=== PATIENT | female | born 1980 | race Caucasian/White ===

== ENCOUNTER 2020-03-16 01:45 | Outpatient (CLI) | payer MEDICAID, SELFPAY ==
[2020-03-16 08:40] LABS: Abs Immature Grans 0.05 10^3/uL (0.0-0.06); Absolute Basophil Count 0.02 10^3/uL (0.0-0.2); Absolute Eosinophil Count 0.16 10^3/uL (0.0-0.7); Absolute Lymphocyte Count 1.57 10^3/uL (1.2-3.4); Absolute Monocyte Count 0.37 10^3/uL (0.1-0.8); Basophils % 0.3; Eosinophils % 2.1; HCT 35.2 % (36.0-46.0); HGB 12.4 g/dL (11.2-15.7); Immature Grans % 0.7; MCH 31.3 pg (27.0-33.0); MCHC 35.2 % (32.0-36.0); MCV 88.9 fL (80-95); MPV 9.5 fL (8.0-11.0); Neutrophils % 70.9; Nucleated RBC 0 %; Platelet Count 246 10^3/uL (130-400); RBC 3.96 10^6/uL (3.93-5.22); RDW 12.6 % (11.7-14.6); RDW-SD 41.2 fL; WBC 7.47 10^3/uL (4.4-10.8)
[2020-03-16 09:18] LABS: Iron 217 ug/dL (50-170); Total Iron Binding Capacity 342 ug/dL (250-450); Transferrin Sat 63 % (15-50)
[2020-03-16 09:41] LABS: Vitamin D 25 Total 35.2 ng/ml (30-100)
[2020-03-16 10:47] LABS: ALT 26 U/L (14-59); AST 19 U/L (15-37); Albumin 4.1 g/dL (3.4-5.0); Alkaline Phosphatase 29 U/L (46-116); Anion Gap 7.8 mmol/L (3-11); BUN 10 mg/dL (7-18); Bilirubin, Total 0.6 mg/dL (0.2-1.0); CO2 27.2 mmol/L (21.0-32.0); CREATININE 0.77 mg/dL (0.55-1.02); Calcium 8.9 mg/dL (8.5-10.1); Chloride 104 mmol/L (98-107); Ferritin 24 ng/mL (8-252); Folate > 20.0 ng/mL (8.6-20.0); Glucose 91 mg/dL (74-106); Magnesium 1.9 mg/dL (1.8-2.4); Potassium 3.7 mmol/L (3.5-5.1); Sodium 139 mmol/L (136-145); TSH 2.98 uIU/mL (0.36-3.74); Total Protein 7.3 g/dL (6.4-8.2); Vitamin B12 398 pg/mL (193-986)
[2020-03-16 11:03] LABS: FREE T4 1.26 ng/dL (0.76-1.46)
[2020-03-16 21:42] LABS: T3,Free 3.4 pg/mL (2.8-5.3)
[2020-03-16 21:52] LABS: Progesterone <0.2 ng/mL (See Table)
[2020-03-18 09:45] LABS: Thyroperoxidase Antibody <28 U/mL (<=60)
[2020-03-18 11:08] LABS: Lipoprotein (a) 6 mg/dL (<=30)
[2020-03-18 12:42] LABS: Homocysteine 7.9 umol/L (5.0-13.9)
[2020-03-20 09:04] LABS: Dehydroepiandrosterone (DHEA) 3.6 ng/mL (<10)
[2020-03-21 09:54] LABS: Testosterone, Free <0.04 ng/dL (0.06-1.00); Testosterone, Total 36 ng/dL (8-60)
[2020-03-23 16:15] LABS: Estradiol, Mass Spectrometry <10 pg/mL; Estrone 17 pg/mL
== END 2020-03-16 02:05 ==
PROVIDERS: PCP Internal Medicine; Visit Provider Naturopath
DX: G43.909 Migraine, unspecified, not intractable, without status migrainosus (principal); N94.3 Premenstrual tension syndrome; R53.83 Other fatigue; Z13.220 Encounter for screening for lipoid disorders
CPT/HCPCS: 36415; 80053; 82306; 83090; 83695; 84402; 84403; 82607; 82626; 82670; 82679; 82728; 82746; 83036; 83540; 83550; 83735; 84144; 84439; 84443; 84481; 85025; 86376